=== PATIENT | male | born 1995 ===

== ENCOUNTER 2018-10-05 22:54 | Emergency (ER) | payer OTHER ==
--- NOTE | 2018-10-06 01:17 | ED ---
Lower Extremity - HPI Summary HPI Summary: 23-year-old male presents with right leg injury today. States he was wearing boots and twisting his ankle and fell. He states he has a previous fibular fracture midshaft many years ago. Denies any numbness or tingling. He has not been able to place weight on the area. No other injury. He states pain is located on the lateral aspect of the knee and on the medial aspect of the ankle on the right. he is a student at [employer]. - History of Current Complaint Chief Complaint: EDExtremityLower Stated Complaint: RT LEG INJURY Time Seen by Provider: 10/06/18 00:56 Pain Intensity: 2 - Allergies/Home Medications Allergies/Adverse Reactions: Allergies Allergy/AdvReac Type Severity Reaction Status Date / Time No Known Allergies Allergy Verified 10/05/18 23:09 PMH/Surg Hx/FS Hx/Imm Hx Endocrine/Hematology History: Denies: Hx Anticoagulant Therapy Cardiovascular History: Denies: Hx Myocardial Infarction Infectious Disease History: No Infectious Disease History: Denies: Traveled Outside the [place] in Last 30 Days - Family History Known Family History: Positive: Non-Contributory - Social History Substance Use Type: Reports: None Smoking Status (MU): Never Smoked Tobacco Review of Systems Negative: Fever Negative: Chest Pain Negative: Shortness Of Breath Positive: Myalgia - right leg pain All Other Systems Reviewed And Are Negative: Yes Physical Exam Triage Information Reviewed: Yes Vital Signs On Initial Exam: Initial Vitals Temp Pulse Resp BP Pulse Ox 99 F 108 20 143/96 97 10/05/18 23:06 10/05/18 23:06 10/05/18 23:06 10/05/18 23:06 10/05/18 23:06 Vital Signs Reviewed: Yes Appearance: Positive: Well-Appearing Skin: Positive: Warm, Dry Head/Face: Positive: Normal Head/Face Inspection Eyes: Positive: Normal, Conjunctiva Clear ENT: Positive: Pharynx normal Respiratory/Lung Sounds: Positive: Clear to Auscultation Cardiovascular: Positive: Normal, RRR Musculoskeletal: Positive: Limited @ - right leg, Other - tenderness over medial lower ankle and lateral right knee, good pulses, sensation grossly intact. soft compartments Neurological: Positive: Sensory/Motor Intact Psychiatric: Positive: Normal Procedures - Splinting right leg Location: right leg Hand-Made Type: orthoglass Splint: posterior walking Pre-Proc Neuro Vasc Exam: normal Post-Proc Neuro Vasc Exam: normal Diagnostics - Vital Signs Vital Signs Temp Pulse Resp BP Pulse Ox 10/05/18 23:06 99 F 108 20 143/96 97 - Laboratory Lab Statement: Any lab studies that have been ordered have been reviewed, and results considered in the medical decision making process. - Radiology leg Radiology Interpretation Completed By: ED Physician Summary of Radiographic Findings: distal tibia and proximal fibula fracture Lower Extremity Course/Dx - Course Course Of Treatment: 23-year-old male presents with right leg injury today. States he was wearing boots and twisting his ankle and fell. He states he has a previous fibular fracture midshaft many years ago. Denies any numbness or tingling. He has not been able to place weight on the area. No other injury. He states pain is located on the lateral aspect of the knee and on the medial aspect of the ankle on the right. On exam has tenderness over medial ankle and lateral right knee. Neurovascular intact. X-ray shows proximal fibula with a distal tibia fracture. Placed in a posterior long and sugar tong splint. Told to stay nonweight bearing. Told to follow-up with ortho. Stressed the importance of ice and elevation. Warned of signs of compartment syndrome to return to ED. Patient understands and agrees with plan. - Diagnoses Differential Diagnosis/HQI/PQRI: Positive: Fracture (Closed), Sprain, Strain Provider Diagnoses: Tibia/fibula fracture Discharge - Sign-Out/Discharge Documenting (check all that apply): Patient Departure Patient Received Moderate/Deep Sedation with Procedure: No - Discharge Plan Condition: Good Disposition: HOME Prescriptions: oxyCODONE/Acetamin 5/325 MG* [Percocet 5/325 TAB*] 1 tab PO Q6H PRN #20 tab MDD 4 PRN Reason: Pain Patient Education Materials: Leg Fracture (ED) Referrals: No Primary Care Phys,NOPCP [Primary Care Provider] - Adriano Denise MD [Medical Doctor] - Additional Instructions: Use crutches and stay nonweight bearing Keep splint on area and keep dry Call ortho office to set up appointment for follow up on monday Use ibuprofen for pain every 6 hours and use percocet for breakthrough pain every 6 hours Ice, elevate Return to ED if develop numbness or tingling or any new or worsening symptoms - Billing Disposition and Condition Condition: GOOD Disposition: Home
[2018-10-06] MEDS ORDERED: Ibuprofen TAB* 800 MG PO ONE (01:22)
[2018-10-06] MEDS ORDERED: oxyCODONE/Acetamin 5/325 MG* TAB PO ONE (01:22)
[2018-10-06 01:56] VITALS: BP 132/71
== END 2018-10-06 01:45 | disposition home or self-care (01) ==
LOC: ED 22:54
DX: S82.831A Other fracture of upper and lower end of right fibula, initial encounter for closed fracture (principal); S82.301A Unspecified fracture of lower end of right tibia, initial encounter for closed fracture; X50.1XXA Overexertion from prolonged static or awkward postures, initial encounter; Y92.9 Unspecified place or not applicable
CPT/HCPCS: 99282; A9270-GY